=== PATIENT | female | born 1950 | race Caucasian/White ===

== ENCOUNTER 2019-07-29 11:55 | Emergency (ER) | payer SELFPAY ==
[~2019-07-29] VITALS: Ht 157.5 cm; Wt 118.2 kg
[2019-07-29 12:12] LABS: HEMATOCRIT 40.8 % (37.0-47.0); IMMATURE GRANULOCYTES 1.1 % (0.0-5.0); MEAN CORPUSCULAR HGB 29.2 pG CALC (26.0-32.0); MEAN CORPUSCULAR HGB CONC 34.3 g/dL CAL (32.0-36.0); NEUT# 8.23 thou/uL (2.00-7.15); RED BLOOD COUNT 4.8 mill/uL (4.20-5.60); RED CELL DISTRI WIDTH 13.8 % (11.5-15.5)
[2019-07-29 12:38] LABS: ALBUMIN 4.3 g/dL (3.2-5.0); ALKALINE PHOSPHATASE 59 u/l (38-126); ANION GAP 25 (6-22 (CALC)); BILIRUBIN, TOTAL 0.8 mg/dL (0.0-1.4); BUN 16 mg/dL (8-23); BUN/CREATININE RATIO 18 (12-20 (CALC)); CARBON DIOXIDE 16 mmol/l (22-30); CHLORIDE 93 mmol/l (95-108); CREATININE 0.9 mg/dL (0.5-1.0); GFR > 60 ML/MIN (>=60 (CALC)); GFR FOR AFR.AMER. > 60 ML/MIN (>=60 (CALC)); SGOT/AST 76 u/l (9-36); SODIUM 129 mmol/l (137-146); TOTAL PROTEIN 7.5 g/dL (6.3-8.2)
[2019-07-29 13:01] LABS: C-REACTIVE PROTEIN 6.4 mg/dL (0-0.9)
[2019-07-29 13:06] LABS: MYOGLOBIN 1088 ng/mL (0 - 62)
[2019-07-29 13:10] LABS: URINE COLOR YELLOW; URINE GLUCOSE - DIPSTICK 250 mg/dL (NEGATIVE); URINE KETONE 15 mg/dL (NEGATIVE); URINE PH 5.5 (4.5-8.0); URINE SPECIFIC GRAVITY >=1.030; URINE UROBILINOGEN - DIPSTICK 0.2 E.U./dL (0.2)
[2019-07-29 13:14] LABS: URINE BILIRUBIN - DIPSTICK NEGATIVE (NEGATIVE); URINE NITRITE - DIPSTICK POSITIVE (Negative); URINE PROTEIN - DIPSTICK >=300 mg/dL (NEG-TRACE)
[2019-07-29 13:15] LABS: URINE BLOOD DIPSTICK LARGE (NEGATIVE); URINE LEUK ESTERASE NEGATIVE (NEGATIVE)
[2019-07-29 13:18] LABS: URINE BACTERIA MODERATE hpf; URINE EPITHELIAL CELLS MODERATE EPI/hpf (0-FEW)
[2019-07-29 14:35] VITALS: BP 110/56
--- NOTE | 2019-07-31 08:11 | NUR ---
SPOKE WITH NURSE RINALDI IN ICU @ [facility]. FAXED URINE CULTURE RESULTS TO [phone]
== END 2019-07-29 14:35 | disposition short-term general hospital (02) | DRG 871 ==
LOC: ED 11:55
PROVIDERS: Family Medicine
PROC: 0BH17EZ Insertion of Endotracheal Airway into Trachea, Via Natural or Artificial Opening (ICD-10-PCS; principal; 2019-07-29)
PROC: 02HV33Z Insertion of Infusion Device into Superior Vena Cava, Percutaneous Approach (ICD-10-PCS; 2019-07-29)
PROC: 0T9B70Z Drainage of Bladder with Drainage Device, Via Natural or Artificial Opening (ICD-10-PCS; 2019-07-29)
DX: A41.89 Other specified sepsis (principal); U07.1 COVID-19; J12.89 Other viral pneumonia; J96.00 Acute respiratory failure, unspecified whether with hypoxia or hypercapnia; R65.20 Severe sepsis without septic shock
CPT/HCPCS: J0131

== ENCOUNTER 2021-09-13 16:11 | Emergency (ER) | payer SELFPAY ==
[2021-09-13] VITALS (7 sets, daily range): BP systolic 133–161; BP diastolic 77–97
[~2021-09-13] VITALS: Ht 157.5 cm; Wt 118.0 kg
[2021-09-13 17:26] LABS: GFR FOR AFR.AMER. > 60 ML/MIN (>=60 (CALC)); GFR OTHER RACES > 60 ML/MIN (>=60 (CALC))
[2021-09-13 17:28] LABS: HEMATOCRIT 38.3 % (37.0-47.0); HEMOGLOBIN 12.6 g/dl (12.0-16.0); IMMATURE GRANULOCYTES 0.2 % (0.0-5.0); MEAN CELL VOLUME 89.5 fL CALC (80.0-100.0); MEAN CORPUSCULAR HGB 29.4 pG CALC (26.0-32.0); MEAN CORPUSCULAR HGB CONC 32.9 g/dL CAL (32.0-36.0); NEUT# 6.99 thou/uL (2.00-7.15); RED BLOOD COUNT 4.28 mill/uL (4.20-5.60)
[2021-09-13 17:50] LABS: ALKALINE PHOSPHATASE 67 u/l (38-126); AMYLASE 68 u/l (30-110); ANION GAP 17 (6-22 (CALC)); BILIRUBIN, TOTAL 0.5 mg/dL (0.0-1.4); BUN 17 mg/dL (8-23); BUN/CREATININE RATIO 21 (12-20 (CALC)); CARBON DIOXIDE 19 mmol/l (22-30); CHLORIDE 104 mmol/l (95-108); CREATININE 0.8 mg/dL (0.5-1.0); GFR FOR AFR.AMER. > 60 ML/MIN (>=60 (CALC)); GFR OTHER RACES > 60 ML/MIN (>=60 (CALC)); LIPASE 106 u/l (23-300); POTASSIUM 4.1 mmol/l (3.5-5.1); SGOT/AST 20 u/l (9-36); TOTAL PROTEIN 6.6 g/dL (6.3-8.2)
[2021-09-13 17:53] LABS: SODIUM 136 mmol/l (137-146)
[2021-09-13 18:02] LABS: MYOGLOBIN 36 ng/mL (0 - 62)
[2021-09-13] MEDS ORDERED: SIMVASTATIN5 MG PO (19:04)
[2021-09-13] MEDS ORDERED: METFORMIN HYDR850 MG PO (19:04)
== END 2021-09-13 21:04 | disposition short-term general hospital (02) | DRG 379 ==
LOC: ED 16:11
PROVIDERS: Nurse Practitioner
DX: K92.1 Melena (principal); I10 Essential (primary) hypertension; E11.9 Type 2 diabetes mellitus without complications; E78.00 Pure hypercholesterolemia, unspecified; E66.01 Morbid (severe) obesity due to excess calories; Z79.84 Long term (current) use of oral hypoglycemic drugs
CPT/HCPCS: Q9967